=== PATIENT | male | born 1945 | race Caucasian/White ===

== ENCOUNTER → 2020-11-03 | Outpatient (CLI) | payer OTHER | LOC: HEART 5 09:13 | DX: R07.9 Chest pain, unspecified (principal) | CPT/HCPCS: 78452; A9502; J2785 ==

== ENCOUNTER → 2020-11-07 | Outpatient (CLI) | payer OTHER | LOC: KOH-I 10:19 | DX: R10.31 Right lower quadrant pain (principal); K76.0 Fatty (change of) liver, not elsewhere classified; N20.0 Calculus of kidney | CPT/HCPCS: 74176 ==

== ENCOUNTER → 2020-12-09 | Outpatient (CLI) | payer OTHER | LOC: MRI 12:30 | DX: R93.7 Abnormal findings on diagnostic imaging of other parts of musculoskeletal system (principal); M51.26 Other intervertebral disc displacement, lumbar region; M47.816 Spondylosis without myelopathy or radiculopathy, lumbar region | CPT/HCPCS: 72158; A9577 ==

== ENCOUNTER → 2021-05-11 | Outpatient (CLI) | payer OTHER | LOC: KOH-I 14:23 | DX: M25.552 Pain in left hip (principal); M25.852 Other specified joint disorders, left hip | CPT/HCPCS: 73502 ==

== ENCOUNTER → 2021-10-23 | Outpatient (CLI) | payer OTHER | LOC: MRI 04-06 13:00 | DX: C90.31 Solitary plasmacytoma in remission (principal) | CPT/HCPCS: 72158; A9577 ==

== ENCOUNTER 2021-11-01 08:53 | Emergency (ER) | payer OTHER ==
[2021-11-01 10:13] LABS: HEMOGLOBIN 11.9 gm/dl (14.0-17.5); RED BLOOD COUNT 3.95 M/UL (4.20-5.50); WHITE BLOOD COUNT 5.1 K/UL (4.5-11.0)
[2021-11-01 10:33] LABS: BUN/CREATININE RATIO 20 (0-10)
== END 2021-11-01 11:44 | disposition left against medical advice (07) ==
LOC: ER1 08:53
PROVIDERS: Family Medicine
DX: R58 Hemorrhage, not elsewhere classified (principal); L98.8 Other specified disorders of the skin and subcutaneous tissue; C22.9 Malignant neoplasm of liver, not specified as primary or secondary; Z85.820 Personal history of malignant melanoma of skin; I10 Essential (primary) hypertension; E11.9 Type 2 diabetes mellitus without complications
CPT/HCPCS: 80053; 85025; 85610; 96374; 99283; J0360

== ENCOUNTER → 2022-01-15 | Outpatient (CLI) | payer OTHER ==
[~2022-01-15] VITALS: Ht 172.7 cm; Wt 86.2 kg
== END ==
LOC: EROP 12:48
DX: U07.1 COVID-19 (principal); E11.9 Type 2 diabetes mellitus without complications; I10 Essential (primary) hypertension
CPT/HCPCS: M0222; Q0222